=== PATIENT | female | born 1965 | race Caucasian/White ===

== ENCOUNTER 2024-04-04 01:24 | Emergency (ER) | payer BC, SELFPAY ==
[2024-04-04 01:25] VITALS: BP 148/82; PULSE 84; RESP 18; TEMP 36.1; O2SAT 96; BMI 27.7
--- NOTE | 2024-04-04 01:43 | RAD_ITS ---
PROCEDURE: CHEST 1 VIEW (PORTABLE) REASON FOR EXAM: Nausea. Dry mouth. Chest tightness TECHNIQUE: AP portable view of the chest. COMPARISON: None FINDINGS: Mild hyperinflation. Trace atelectasis within the lung bases. No focal airspace consolidation, pneumothorax or pleural effusion is seen. Remaining lung markings otherwise appears clear. Heart size and great vessels are within normal limits. The osseous thorax appears intact. Mild degenerative change involving the right shoulder. EKG wires overlie the chest. RAD/Chest 1 View (Portable) IMPRESSION: Mild hyperinflation, without focal airspace consolidation. Reading Location: [facility]
--- NOTE | 2024-04-04 01:43 | EKG12_ITS ---
Test Reason : DYSRHYTHMIA Blood Pressure : */* mmHG Vent. Rate : 76 BPM Atrial Rate : 76 BPM P-R Int : 152 ms QRS Dur : 78 ms QT Int : 384 ms P-R-T Axes : 79 65 52 degrees QTcB Int : 432 ms Normal sinus rhythm Normal ECG Confirmed by Shayan Boss [id number]), city editor JENS CEE ([id number]) on 04/04/2024 11:12:39 AM Referred By: Confirmed By: Shayan Boss
[2024-04-04 01:46] LABS: Bedside Glucose 408 mg/dL (74-106)
--- NOTE | 2024-04-04 01:55 | EX.ED.DYSGE1 ---
HPI History of Present Illness Chief Complaint: Hyperglycemia Narrative Narrative: Chief complaint and HPI: 59-year-old female with past medical history of type 1 diabetes on insulin pump, hypothyroidism, HLD presents for evaluation of hyperglycemia. Patient states for the past 2 months she has been having bilateral elbow pain. She states that she was diagnosed with bursitis and placed on NSAID. She states this really did not improve her pain so she was placed on prednisone. Has taken it twice. Patient states since being on the prednisone she has had a hyperglycemia. She states her basal rate in her pump is usually 0.71. She states she is increased that to 0.85. She has bolused herself a total about 40 units on her insulin pump as well as an additional 12 units long-acting subcutaneous injection as well as 12 units Humalog subcutaneous injection. This was all given around 7 PM. Patient states this evening she has developed dry mouth, nausea, and chest tightness secondary to her sugar and therefore she presents for evaluation. She has not taken anything for her sugar other than her basal rate since around 7 PM. She denies any fever, chills, shortness of breath, abdominal pain, URI symptoms Review of systems: See HPI Medications: As listed on the chart Allergies: As listed on the chart PFSH: Per chart Vital signs: As listed on the chart. Reviewed. Physical exam: Gen: A&O x3, NAD Head: Normocephalic, atraumatic Eyes: No sclera icterus, conjunctiva clear, PERRL, EOMI ENT: Mildly dry mucous membranes Neck: Trachea midline, No JVD CV: RRR, no murmurs, no peripheral edema Resp: Lungs CTA BL, no w/r/c GI: Abd soft, non-distended, non-tender, no r/r/g, + insulin pump Musc: Full ROM, no deformity, patient has mild tenderness to palpation of the bilateral elbows-no erythema, fluctuance, warmth-not consistent with bursitis Skin: Warm, dry Neuro: Alert, oriented, grossly intact, sensation intact Psych: Cooperative, appropriate mood and affect [facility] Medical History (Updated 04/04/24 @ 03:[address] Pilo George, DO) Former smoker Broken shoulder Diabetes Home Medications ?Medication ?Instructions ?Recorded ?Last Taken ?Type insulin lispro 100 unit/mL 1 sliding scale dose 03/05/15 Unknown History subcutaneous cartridge (Humalog U-100 Insulin) simvastatin 10 mg tablet 20 mg PO QHS 03/05/15 03/05/15 History blood-glucose sensor (Dexcom G7 04/04/24 Unknown History Sensor device) estradiol 0.01% (0.1 mg/gram) 1 vaginal 04/04/24 Unknown History vaginal cream etodolac 500 mg tablet 500 mg PO BID PRN pain 04/04/24 Unknown History levothyroxine 88 mcg tablet 88 mcg PO DAILY 04/04/24 Unknown History (Synthroid) paroxetine HCl 20 mg tablet 20 mg PO DAILY 04/04/24 Unknown History prednisone 20 mg tablet 40 mg PO DAILY 04/04/24 Unknown History simvastatin 20 mg tablet 20 mg PO DAILY 04/04/24 Unknown History Allergy/AdvReac Type Severity Reaction Status Date / Time No Known Allergies Allergy Verified 04/04/24 01:30 Surgical History Previous section Social History (System 10/07/18 @ 11:21 by Kari Munoz) Smoking Status: Current every day smoker tobacco type: cigarettes EXAM Physical Exam Const Vital Signs: 04/04/24 01:25 04/04/24 01:31 04/04/24 03:25 Temperature 96.9 F L Temperature Source Axillary Pulse Rate 84 78 Respiratory Rate 18 17 Respiratory Effort Normal Non-Labored Respiratory Pattern Normal Blood Pressure 148/82 H 128/83 H Blood Pressure Mean 104 98 Pulse Ox 96 97 Oxygen Delivery Method Room Air Room Air MDM MDM MDM Narrative Medical decision making narrative: 59-year-old female with past medical history of type 1 diabetes on insulin pump, hypothyroidism, HLD presents for evaluation of hyperglycemia. Hyperglycemia secondary to prednisone. Blood glucose on arrival was 408. Patient states she usually would give herself 12 units subcutaneous insulin to correct for this therefore 12 units subcutaneous insulin ordered. NS bolus and Zofran ordered for symptoms. Suspect her nausea, dry mouth, chest tightness is secondary to her hyperglycemia. Will obtain laboratory workup to assess for DKA, electrolyte abnormality, suspect less likely ACS. CBC without leukocytosis. Patient has baseline anemia. VBG without acidosis. BMP with mild dehydration. Glucose 385. Patient just received her insulin. Troponin unremarkable. UA positive for glucose but negative for UTI. Acetone level negative. Patient not in DKA. After fluids, repeat glucose 251. Patient stable to discharge home. I suspect patient's hyperglycemia secondary to her prednisone use. Based on clinical exam, patient does not have bursitis. I recommend her stop taking the prednisone. Monitor sugars closely at home. Correct as needed. Follow-up with PCP. She confirmed understanding the plan. Return precautions explained. EKG: Interpreted by me/EM physician: EKG shows normal sinus rhythm without any acute ischemic changes. Heart rate 76 Diagnostic: Interpreted by me/EM physician: Chest x-ray without pneumonia, effusion, cardiomegaly, pneumothorax Impression: 1. Hyperglycemia with known type 1 diabetes 2. Medication side effect 3. Mild dehydration Lab Data Labs: Laboratory Results - last 24 hr 04/04/24 04/04/24 04/04/24 01:28 02:08 02:49 WBC 11.0 RBC 3.63 L Hgb 11.7 L Hct 34.5 L MCV 95.0 MCH 32.2 H MCHC 33.9 RDW Std Deviation 46.7 H RDW Coeff of Shabbir 13.3 Plt Count 282 MPV 9.0 Immature Gran % (Auto) 0.500 Neut % (Auto) 82.7 H Lymph % (Auto) 12.1 L Wilson % (Auto) 4.5 Eos % (Auto) 0.0 Baso % (Auto) 0.2 Absolute Neuts (auto) 9.1 H Absolute Lymphs (auto) 1.33 Nucleated RBC % 0 Sodium 133 L Potassium 4.3 Chloride 100 Carbon Dioxide 23.0 Anion Gap 10 BUN 16 Creatinine 1.06 H Estim Creat Clear Calc 53.35 Est GFR (MDRD) Af Amer 68 Est GFR (MDRD) Non-Af 56 L BUN/Creatinine Ratio 15.1 Glucose 385 H Calcium 8.7 Troponin I High Sens < 3 L Urine Color Straw Urine Clarity Clear Urine pH 6.0 Ur Specific [place] 1.005 Urine Protein Negative Urine Glucose (UA) 1000 H Urine Ketones Negative Urine Occult Blood 10 H Urine Nitrite Negative Urine Bilirubin 1 H Urine Urobilinogen Normal Ur Leukocyte Esterase Negative Urine RBC 0-5 SEEN Urine WBC 0-5 SEEN Ur Squamous Epith Cells 0-5 SEEN Urine Bacteria 0 SEEN Urine Mucus 0 SEEN Acetone Level NEGATIVE POC Glucose 408 H ABG Data ABG results: ABG 04/04/24 02:19 Specimen Type ARUN Sample Site Not entered VBG pH 7.36 VBG pO2 43 H VBG HCO3 23 VBG Total CO2 24 VBG O2 Sat (Calc) 76 H VBG Base Excess -2 L POC Mix VBG pCO2 Pt Tmp 41.2 O2 Delivery Device Room Air Radiography Diagnostic Testing: Clinical Impression(s) from Imaging Studies Chest X-Ray 04/04/24 01:43 IMPRESSION: Mild hyperinflation, without focal airspace consolidation. Reading [facility] Dis[facility] Plan Triage Chief Complaint: Hyperglycemia ED Provider: Pilo George Dx/Rx/DC Orders Clinical Impression: Hyperglycemia due to diabetes mellitus Instructions: High Blood Sugar (Hyperglycemia) Prescriptions: No Action simvastatin 10 MG tablet 20 mg PO QHS Patient Comments: CHOLESTEROL LOWERING Humalog U-100 Insulin 100 UNIT/ML cartridge 1 sliding scale dose Patient Comments: DIABETES - HAS PUMP levothyroxine [Synthroid] 88 mcg tablet 88 mcg PO DAILY simvastatin 20 mg tablet 20 mg PO DAILY paroxetine HCl 20 mg tablet 20 mg PO DAILY prednisone 20 mg tablet 40 mg PO DAILY etodolac 500 mg tablet 500 mg PO BID PRN (Reason: pain) estradiol 0.01 % (0.1 mg/gram) cream 1 vaginal (DME) Dexcom G7 Sensor Device MISCELLANEOUS Patient Comments: [NO ORIGINAL SIG] Primary Care Provider: Francesco Cameron Referrals: Fany Delatorre MD [Med Staff - [employer]] - 3-5 Days Activity Restrictions/Additional Instructions: Monitor your blood sugar closely at home. Correct as needed for hyperglycemia. Follow-up with your primary care physician. Recommend stop taking prednisone. Print Language: Russian Disposition Disposition: Home, Self Care
[2024-04-04] MEDS: Ondansetron 4 MG/2 ML Vial IV (02:06)
[2024-04-04] MEDS: 0.9% Normal Saline (1000mL) 1,000 ML 1000 ML IV (02:06)
[2024-04-04] MEDS: Insulin Lispro 100 UNIT/ML INSULN.PEN 12 UNIT SC (02:08)
[2024-04-04 02:17] LABS: Absolute Lymphocyte Count 1.33 X10^3/uL (0.83-4.51); Absolute Neutrophil Count 9.1 X10^3/uL (2.0-7.7); Basophil# 0.02 X10^3/uL; Basophil% 0.2 % (0-1); Hematocrit 34.5 % (37-47); Hemoglobin 11.7 g/dL (12.0-15.0); Lymphocyte # 1.33 X10^3/ul (0.83-4.51); Lymphocyte % 12.1 % (19-41); Mean Corp Hgb Conc 33.9 g/dL (32-36); Mean Corpuscular Hgb 32.2 pg (27.0-32.0); Monocyte# 0.49 X10^3/uL; Monocyte% 4.5 % (0-10); NRBC Flagged by Analyzer 0 % (0-5); Neutrophil % 82.7 % (47-70); Platelet Count 282 K/mm3 (150-450); RBC Distribution Width CV 13.3 % (11.6-14.6); RBC Distribution Width SD 46.7 fl (35.1-43.9); Red Blood Count 3.63 M/mm3 (4.2-5.4)
[2024-04-04 02:23] LABS: Blood Gas Specimen Type VEN; O2 Delivery Device Room Air; SITE Not entered; VBG BASE EXCESS -2 mmol/L (-1.0-3.5); VBG Bicarbonate 23 mmol/L (22-26); VBG PO2 43 mmHg (25-40); VBG SO2 76 % (50-70); VBG TCO2 24 mmol/L (23-33); VBG pCO2 41.2 mmHg (41-51); VBG pH 7.36 (7.32-7.42)
[2024-04-04 02:34] LABS: Anion Gap 10 (5-15); BUN 16 mg/dL (7-18); BUN/Creat Ratio 15.1 RATIO (10-20); Calcium,Total 8.7 mg/dL (8.5-10.1); Chloride 100 mmol/L (98-107); Creatinine, Serum 1.06 mg/dL (0.55-1.02); EST Glomerular Filtration Rate 56 mL/min (>60); Est Glom Filt Rate - Afr Amer 68 mL/min (>60); Estimated Creatinine Clearance 53.35 ml/min; Glucose 385 mg/dL (74-106); Potassium 4.3 mmol/L (3.5-5.1); Sodium Level 133 mmol/L (136-145); Troponin-I HS < 3 pg/mL (3.0-54.0)
[2024-04-04 02:57] LABS: Bacteria 0 SEEN /hpf (None Seen); Mucous, Urine 0 SEEN /hpf (<or=2+)
[2024-04-04 02:58] LABS: Color, Urine Straw (Yellow); Glucose, Dipstick 1000 mg/dl (Normal); Ketone-Dipstick Negative (Negative); Leukocyte Esterase-Dipstick Negative /ul (Negative); Nitrite-Dipstick Negative (Negative); Occult Blood-Urine 10 /ul (Negative); Protein-Dipstick Negative (Negative); Specific Gravity, Urine 1.005 (1.002-1.030); Urine Clarity Clear (Clear); Urine Urobilinogen Normal (Normal)
[2024-04-04 03:07] LABS: Red Blood Cells-Urine 0-5 SEEN /hpf (0-5); Squamous Epithelial Cells - UA 0-5 SEEN /hpf (5-10); Urine Bilirubin Dipstick 1 mg/dL (Negative); White Blood Cells 0-5 SEEN /hpf (0-5)
[2024-04-04 03:25] VITALS: BP 128/83; PULSE 78; RESP 17; O2SAT 97
[2024-04-04 03:44] VITALS: BP 137/81; PULSE 78; RESP 16; TEMP 36.1; O2SAT 99
[2024-04-04 03:49] LABS: Bedside Glucose 251 mg/dL (74-106)
== END 2024-04-04 03:44 | disposition home or self-care (01) ==
PROVIDERS: Emergency Provider Surgery; PCP Internal Medicine; Visit Provider Surgery
DX: E10.65 Type 1 diabetes mellitus with hyperglycemia (principal); F17.210 Nicotine dependence, cigarettes, uncomplicated; Z96.41 Presence of insulin pump (external) (internal)
CPT/HCPCS: 71045; 80048; 81001; 82009; 82803; 82962; 84484; 85025; 93005; 96361; 96374; 96376; 99284; A4216; J2405